=== PATIENT | female | born 1985 | race Caucasian/White ===

== ENCOUNTER 2021-12-03 09:40 | Emergency (ER) | payer OTHER ==
[~2021-12-03] VITALS: Ht 160 cm; Wt 79.5 kg
[2021-12-03] MEDS ORDERED: ACETAMINOPHEN 500 MG TABLET PO ONE (10:45)
[2021-12-03] MEDS ORDERED: IBUPROFEN 600 MG TABLET PO ONE (10:45)
[2021-12-03 11:30] VITALS: BP 131/88
[2021-12-03] MEDS ORDERED: IBUP-1554 PO (12:12)
[2021-12-03] MEDS ORDERED: ACET-66 PO (12:12)
== END 2021-12-03 12:22 | disposition home or self-care (01) ==
LOC: EMS 09:46
DX: S00.83XA Contusion of other part of head, initial encounter (principal); S60.222A Contusion of left hand, initial encounter; S60.221A Contusion of right hand, initial encounter; Z98.890 Other specified postprocedural states; Y04.8XXA Assault by other bodily force, initial encounter; Y93.89 Activity, other specified; Y92.89 Other specified places as the place of occurrence of the external cause; Y99.8 Other external cause status
CPT/HCPCS: 70486; 71045; 72070; 72125; 99284